=== PATIENT | female | born 1965 | race Caucasian/White ===

== ENCOUNTER 2018-09-29 09:06 | Emergency (ER) | payer OTHER ==
[2018-09-29] MEDS ORDERED: MORPHINE SULFATE 10 MG/ML INJ IV ONE (09:43)
[2018-09-29] MEDS ORDERED: ONDANSETRON HCL INJ/PF 4 MG/2 ML SDV IV ONE (09:43)
--- NOTE | 2018-09-29 09:44 | ER Document Report ---
ED Medical Screen (RME) - General Chief Complaint: Abdominal Pain Stated Complaint: ABDOMINAL PAIN Time Seen by Provider: 09/29/18 09:30 Notes: Patient is a 52-year-old female who presents emergency department with a chief complaint of lower abdominal pain. Patient drove down from [place] yesterday and arrived around 6 PM and states that she is had on and off pain since then. She was diagnosed with a uterine mass earlier this year and is scheduled for hysterectomy in [place] on October 16. She has history of a bladder sling that was placed in June and history of a cholecystectomy. Her last menstrual cycle was 5 years ago patient denies any dysuria. She admits to some nausea and diarrhea. Denies any vomiting. Exam: Very tender mid lower abdomen. I have greeted and performed a rapid initial assessment of this patient. A comprehensive ED assessment and evaluation of the patient, analysis of test results and completion of medical decision making process will be conducted by an additional ED providers. TRAVEL OUTSIDE OF THE [place] IN LAST 30 DAYS: No - Related Data Allergies/Adverse Reactions: Penicillins Allergy (Verified 09/29/18 09:08) Physical Exam - Vital signs Vitals: Temp Pulse Resp BP Pulse Ox 97.9 F 100 17 133/76 H 97 09/29/18 09:11 09/29/18 09:11 09/29/18 09:11 09/29/18 09:11 09/29/18 09:11 Course - Vital Signs Vital signs: Temp Pulse Resp BP Pulse Ox 97.9 F 100 17 133/76 H 97 09/29/18 09:11 09/29/18 09:11 09/29/18 09:11 09/29/18 09:11 09/29/18 09:11
[2018-09-29] MEDS ORDERED: FENTANYL CITRATE INJ/PF 100 MCG/2 ML AMPUL IV ONE (10:11)
[2018-09-29 10:20] LABS: ABSOLUTE LYMPHOCYTES (AUTO) 1.2 10^3/uL (0.5-4.7); ABSOLUTE MONOCYTES (AUTO) 0.7 10^3/uL (0.1-1.4); ABSOLUTE NEUT (AUTO) 11.1 10^3/uL (1.7-8.2); BASOPHILS % (AUTO) 0.2 % (0-2); EOSINOPHILS % (AUTO) 0.2 % (0-6); HEMATOCRIT 38.9 % (36.0-47.0); HEMOGLOBIN 13.1 g/dL (12.0-15.5); MEAN CORPUSCULAR HGB CONC 33.5 g/dL (32.0-36.0); MEAN CORPUSCULAR VOLUME 87 fl (80-97); MONOCYTES % (AUTO) 5.6 % (3-13); PLATELET COUNT 429 10^3/uL (150-450); RED CELL DISTRIBUTION WIDTH 13.5 % (11.5-14.0); TOTAL CELLS COUNTED % (AUTO) 100 %
[2018-09-29 10:48] LABS: ALBUMIN 4.2 g/dL (3.5-5.0); ALKALINE PHOSPHATASE 135 U/L (38-126); ANION GAP 12 (5-19); ASPARTATE AMINO TRANSFERASE 40 U/L (14-36); BILIRUBIN,DIRECT 0.5 mg/dL (0.0-0.4); BILIRUBIN,TOTAL 0.7 mg/dL (0.2-1.3); BLOOD UREA NITROGEN 10 mg/dL (7-20); CALCIUM 9.7 mg/dL (8.4-10.2); CARBON DIOXIDE 21 mmol/L (22-30); CHLORIDE 104 mmol/L (98-107); GLUCOSE 122 mg/dL (75-110); POTASSIUM 4.4 mmol/L (3.6-5.0); TOTAL PROTEIN 7.3 g/dL (6.3-8.2)
[2018-09-29 10:49] LABS: APPEARANCE,URINE CLEAR; BILIRUBIN,URINE NEGATIVE (NEGATIVE); COLOR,URINE YELLOW; GLUCOSE, URINE NEGATIVE (NEGATIVE); KETONES,URINE NEGATIVE (NEGATIVE); LEUKOCYTE ESTERASE,URINE NEGATIVE (NEGATIVE); NITRITE,URINE NEGATIVE (NEGATIVE); PROTEIN,URINE NEGATIVE (NEGATIVE); URINE SPECIFIC GRAVITY 1.014; UROBILINOGEN,URINE NEGATIVE mg/dL (<2.0)
[2018-09-29] MEDS ORDERED: HYDROMORPHONE HCL INJ/PF 2 MG/ML AMPULE IV ONE ×2 (11:20→13:03)
[2018-09-29] MEDS ORDERED: NORMAL SALINE 1000 ML 1,000 ML IV ONE (11:21)
--- NOTE | 2018-09-29 11:25 | ER Document Report ---
ED General - General Chief Complaint: Abdominal Pain Stated Complaint: ABDOMINAL PAIN Time Seen by Provider: 09/29/18 09:30 TRAVEL OUTSIDE OF THE [place] IN LAST 30 DAYS: No - HPI Notes: Patient is a 52-year-old female that that presents to the emergency department for chief complaint of lower abdominal pain. Patient reports driving into town from out of state yesterday and at the end of her trip around 4 PM she began to have pain in her lower abdomen. She states it is been constant and getting worse since onset. The pain radiates across her entire lower abdomen and is worse with any movement or hitting bumps in the car. Patient does report a history of uterine mass and states that occasionally does give her pain but has never given her severe pain like this. She reports nausea with no vomiting. She had one episode of diarrhea this morning. She denies associated fevers and chills. She did take ibuprofen at 4 AM this morning with no improvement of her pain. Patient is scheduled to have hysterectomy on October 16. she denies urinary complaints Past Medical History: Uterine mass Past Surgical History: bladder sling Social History: denies drug ETOH and tobacco use Family History: Reviewed and noncontributory for presenting illness Allergies: Reviewed, see documented allergy list. REVIEW OF SYSTEMS: CONSTITUTIONAL : No fever No chills No diaphoresis No recent illness EENT: No vision changes No congestion No sore throat CARDIOVASCULAR: No chest pain No palpitations RESPIRATORY: No shortness of breath No cough No difficulty breathing GASTROINTESTINAL: abdominal pain nausea No vomiting diarrhea GENITOURINARY: No dysuria No hematuria No difficulty urinating MUSCULOSKELETAL: No back pain No leg pain No arm pain SKIN: No rashes No lesions LYMPHATIC: No swollen, enlarged glands. NEUROLOGICAL: No lightheadedness No headache No weakness No paresthesias PSYCHIATRIC: No anxiety No depression PHYSICAL EXAMINATION: Vital signs reviewed, nursing noted reviewed. GENERAL: appears uncomfortable, overweight, and in non-toxic HEAD: Atraumatic, normocephalic. EYES: Eyes appear normal, extraocular movements intact, sclera anicteric, conjunctiva are normal. ENT: nares patent, oropharynx clear without exudates. Moist mucous membranes. NECK: Normal range of motion, supple without lymphadenopathy LUNGS: Breath sounds clear to auscultation bilaterally and equal. No wheezes rales or rhonchi. HEART: Regular rate and rhythm without murmurs ABDOMEN: Soft, diffusely tender in lower abdomen R>L. voluntary guarding. No rebound or rigidity. No masses appreciated. EXTREMITIES: Nontender, good range of motion, no pitting or edema. NEUROLOGICAL: No focal neurological deficits. Moves all extremities spontaneously Motor and sensory grossly intact on exam. PSYCH: Normal mood, normal affect. SKIN: Warm, Dry, normal turgor, no rashes or lesions noted on exposed skin - Related Data Allergies/Adverse Reactions: Penicillins Allergy (Verified 09/29/18 09:08) Past Medical History - Social History Smoking Status: Never Smoker Frequency of alcohol use: None Drug Abuse: Marijuana Family History: Reviewed & Not Pertinent Patient has suicidal ideation: No Patient has homicidal ideation: No - Past Medical History Cardiac Medical History: Reports: Hx Hypertension Renal/ Medical History: Denies: Hx Peritoneal Dialysis Musculoskeletal Medical History: Reports Hx Arthritis Psychiatric Medical History: Reports: Hx Bipolar Disorder Past Surgical History: Reports: Hx Cholecystectomy, Hx Urinary Tract Surgery - bladder sling Physical Exam - Vital signs Vitals: Temp Pulse Resp BP Pulse Ox 97.9 F 100 17 133/76 H 97 09/29/18 09:11 09/29/18 09:11 09/29/18 09:11 09/29/18 09:11 09/29/18 09:11 Course - Re-evaluation Re-evalutation: 09/29/18 11:24 Vitals reviewed. Nursing notes reviewed. Patient received fentanyl and Zofran in triage and reports minimal improvement of her symptoms. She was ordered Dilaudid for further pain control. Patient does appear uncomfortable and has si gnificant tenderness to her lower abdomen with the right lower quadrant slightly more than suprapubic and left lower quadrant. Patient does have pain with any movement or peritoneal irritation and is voluntarily guarding. CT scan has been ordered to further evaluate her abdominal tenderness. Lab work shows a mild leukocytosis but is otherwise unremarkable. She has a negative urine and UA. 09/29/18 13:06 Patient reevaluated after Dilaudid she did have improvement of her pain but is still significantly uncomfortable. She has a large pelvic mass with pelvic and abdominal free fluid and mesenteric inflammation on CT scan. I did review her CT images with Dr. Elizabeth and Dr. Roberts. They both agree that this is likely a cancerous mass. The mild leukocytosis is likely reactive and there is no overt sign of infection at this point. Dr. Elizabeth does recommend doxycycline to keep any early infection at a minimum. Patient was offered transfer to [facility] for gynecology oncology evaluation and possible surgery however she states she would like to return back to [place] to be seen by her physicians who have been performing the initial work-up on this. She states she has not had a biopsy performed and has not been told that this mass is concerning for cancer. Patient is stable at this point for discharge. She will be given pain medication and doxycycline. She states she will leave the department and start driving back to [place] to see her physician tomorrow. I did mortgage loan counselor her on returning if she stays in town for any increasing pain, fevers or ongoing vomiting. Patient's is at bedside and in agreement with all plan of care as well. Patient stable at discharge. Laboratory 09/29/18 09/29/18 09/29/18 10:05 10:05 10:15 WBC 13.0 H RBC 4.50 Hgb 13.1 Hct 38.9 MCV 87 MCH 29.0 MCHC 33.5 RDW 13.5 Plt Count 429 Seg Neutrophils % 85.0 H Lymphocytes % 9.0 L Monocytes % 5.6 Eosinophils % 0.2 Basophils % 0.2 Absolute Neutrophils 11.1 H Absolute Lymphocytes 1.2 Absolute Monocytes 0.7 Absolute Eosinophils 0.0 Absolute Basophils 0.0 Sodium 136.9 L Potassium 4.4 Chloride 104 Carbon Dioxide 21 L Anion Gap 12 BUN 10 Creatinine 0.54 Est GFR ( Amer) > 60 Est GFR (Non-Af Amer) > 60 Glucose 122 H Calcium 9.7 Total Bilirubin 0.7 Direct Bilirubin 0.5 H Neonat Total Bilirubin Not Reportable Neonat Direct Bilirubin Not Reportable Neonat Indirect Bili Not Reportable AST 40 H ALT 13 Alkaline Phosphatase 135 H Total Protein 7.3 Albumin 4.2 Urine Color YELLOW Urine Appearance CLEAR Urine pH 6.0 Ur Specific Ira 1.014 Urine Protein NEGATIVE Urine Glucose (UA) NEGATIVE Urine Ketones NEGATIVE Urine Blood NEGATIVE Urine Nitrite NEGATIVE Urine Bilirubin NEGATIVE Urine Urobilinogen NEGATIVE Ur Leukocyte Esterase NEGATIVE Urine WBC (Auto) 6 Urine RBC (Auto) 1 Squamous Epi Cells Auto 1 Urine Mucus (Auto) RARE Urine Ascorbic Acid NEGATIVE Urine HCG, Qual NEGATIVE Abdomen/Pelvis CT 09/29/18 11:15 IMPRESSION: 11.3 x 9.7 x 8.5 cm complex solid cystic lesion in the deep right pelvis, likely uterine-ovarian origin. There is scattered free fluid throughout the abdomen and pelvis. Diffuse mesenteric and omental inflammatory changes - free fluid. - Vital Signs Vital signs: Temp Pulse Resp BP Pulse Ox 97.9 F 100 17 133/76 H 97 09/29/18 09:11 09/29/18 09:11 09/29/18 09:11 09/29/18 09:11 09/29/18 09:11 - Laboratory Result Diagrams: 09/29/18 10:05 09/29/18 10:05 Laboratory results interpreted by me: 09/29/18 09/29/18 10:05 10:05 WBC 13.0 H Seg Neutrophils % 85.0 H Lymphocytes % 9.0 L Absolute Neutrophils 11.1 H Sodium 136.9 L Carbon Dioxide 21 L Glucose 122 H Direct Bilirubin 0.5 H AST 40 H Alkaline Phosphatase 135 H Discharge - Discharge Clinical Impression: Pelvic fluid collection, Pelvic mass Abdominal pain Qualifiers: Abdominal location: lower abdomen, unspecified Qualified Code(s): R10.30 - Lower abdominal pain, unspecified Condition: Stable Disposition: HOME, SELF-CARE Instructions: Abdominal Pain ([facility]) Additional Instructions: Please return to the emergency department if you have any worsening, or concern of your symptoms. Please return to the emergency department if you develop fever, difficulty breathing, severe abdominal pain, or ongoing vomiting. Please follow-up with your WARP TESTER in 1 day If prescribed, take all medications as directed. If you have any questions or concerns do not hesitate to return the emergency department for evaluation. Your CT scan today showed a large pelvic mass with fluid. This is concerning for possible ovarian or uterine cancer. Please contact your WARP TESTER to schedule follow-up as soon as possible. Prescriptions: Doxycycline Hyclate 100 mg PO BID #20 capsule Hydrocodone/Acetaminophen [[place] 5-325 mg Tabs (6 Tab/ER Disp)] 6 tab PO Q4 PRN #6 dspk PRN Reason: Pain Scale Of 5
--- NOTE | 2018-09-29 12:22 | RADIOLOGY REPORT (SQ) ---
EXAM DESCRIPTION: CT ABD/PELVIS WITH IV ONLY COMPLETED DATE/TIME: 09/29/2018 11:47 am REASON FOR STUDY: abdominal pain COMPARISON: None. TECHNIQUE: CT scan of the abdomen and pelvis performed using helical scanning technique with dynamic intravenous contrast injection. No oral contrast. Images reviewed with lung, soft tissue, and bone w indows. Reconstructed coronal and sagittal MPR images reviewed. Delayed images for evaluation of the urinary system also acquired. All images stored on PACS. All CT scanners at this facility use dose modulation, iterative reconstruction, and/or weight based d osing when appropriate to reduce radiation dose to as low as reasonably achievable (ALARA). [facility]: Dose Right [facility]: CareDose [facility]: Dose Right [facility]: Teradose 4D [facility]: [employer] CONTRAST TYPE AND DOSE: contrast/concentration: Isovue 350.00 mg/ml; Total Contrast Delivered: 98.0 ml; Total Saline Delivered: 61.0 ml RENAL FUNCTION: GFR > 60. RADIATION DOSE: CT Rad equipment meets quality standard of care and radiation dose reduction techniq ues were employed. CTDIvol: 12.8 - 17.5 mGy. DLP: 1726 mGy-cm.. LIMITATIONS: None. FINDINGS: LOWER CHEST: Scattered areas of subsegmental atelectasis. LIVER: Normal size. No enhancing masses. Mildly dilated ducts. SPLEEN: Normal size. No focal lesions. PANCREAS: No masses identified. No significant calcifications. No adjacent inflammation or peripancre atic fluid collections. Pancreatic duct not dilated. GALLBLADDER: Surgically absent. ADRENAL GLANDS: No significant masses. RIGHT KIDNEY AND URETER: No cysts identified. No solid masses identified. No calcified stones. No hyd ronephrosis or hydroureter. LEFT KIDNEY AND URETER: No cysts identified. No solid masses identified. No calcified stones. No hydr onephrosis or hydroureter. AORTA AND VESSELS: No aneurysm. No dissection. Renal arteries, SMA, celiac without significant stenos is. RETROPERITONEUM: No bulky retroperitoneal adenopathy. Free fluid in the pericolic gutter bilaterally BOWEL AND PERITONEAL CAVITY: No dilated loops to suggest obstruction. Diffuse mesenteric and omental inflammatory changes - free fluid. Small amount of fluid anterior to the right lobe of the liver. APPENDIX: Normal. PELVIS: 11.3 x 9.7 x 8.5 cm complex solid cystic lesion in the deep right pelvis, likely uterine-ovar marilynn origin. There is scattered free fluid throughout the abdomen and pelvis. Unremarkable bladder. ABDOMINAL WALL: No masses. No hernias. BONES: No acute findings. OTHER: No other significant finding. IMPRESSION: 11.3 x 9.7 x 8.5 cm complex solid cystic lesion in the deep right pelvis, likely uterine -ovarian origin. There is scattered free fluid throughout the abdomen and pelvis. Diffuse mesenteric and omental inflammatory changes - free fluid. COMMENT: DRUM DYEING MACHINE OPERATOR consultation recommended. TECHNICAL DOCUMENTATION: JOB ID: [id number] Quality ID # [id number]: Final reports with documentation of one or more dose reduction techniques (e.g., Au tomated exposure control, adjustment of the mA and/or kV according to patient size, use of iterative reconstruction technique) 2010 [employer]- All Rights Reserved Reading location - IP/workstation name: [email or web address]
[2018-09-29] MEDS ORDERED: DOXYCYCLINE HYCLATE 100 MG TABLET PO ONE (12:39)
[2018-09-29] MEDS ORDERED: HYDROCODONE/ACETAMINOPHEN 5-325 MG (6 TAB/ER DISP) PO PRN (13:10)
[2018-09-29 13:31] VITALS: BP 134/82
== END 2018-09-29 13:31 | disposition home or self-care (01) ==
LOC: ER 09:06
DX: R19.09 Other intra-abdominal and pelvic swelling, mass and lump (principal); R18.8 Other ascites; R10.30 Lower abdominal pain, unspecified; R10.813 Right lower quadrant abdominal tenderness; R10.814 Left lower quadrant abdominal tenderness; D72.829 Elevated white blood cell count, unspecified; R11.0 Nausea; R19.7 Diarrhea, unspecified; I10 Essential (primary) hypertension; F12.10 Cannabis abuse, uncomplicated; Z88.0 Allergy status to penicillin; Z90.49 Acquired absence of other specified parts of digestive tract
CPT/HCPCS: 96376; 99284; 96361; 96374; 96375; 36415; 85025; 81025; 80053; 81001; 74177; J3010; J1170; J2405; J7030